=== PATIENT | female | born 2005 | race Caucasian/White ===

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

== ENCOUNTER 2024-12-30 00:42 | Emergency (ER) | payer OTHER ==
[~2024-12-30] VITALS: Ht 165.1 cm; Wt 64.0 kg
[2024-12-30 00:46] VITALS: O2SAT 100
[2024-12-30] MEDS ORDERED: LIDO700A30 TP (01:31)
[2024-12-30] MEDS: ACETAMINOPHEN 325MG TABLET PO ONE (01:36)
[2024-12-30 02:20] VITALS: BP 128/91; PULSE 99; RESP 18; TEMP 37; O2SAT 100
== END 2024-12-30 02:39 | disposition home or self-care (01) ==
LOC: ER 00:42
DX: S52.501A Unspecified fracture of the lower end of right radius, initial encounter for closed fracture (principal); V89.2XXA Person injured in unspecified motor-vehicle accident, traffic, initial encounter; Y92.410 Unspecified street and highway as the place of occurrence of the external cause; Y93.89 Activity, other specified; Y99.8 Other external cause status
CPT/HCPCS: 29125; 73110; 99283